=== PATIENT | male | born 1970 | race Caucasian/White ===

== ENCOUNTER → 2018-05-29 14:25 | Outpatient (CLI) | payer BC, SELFPAY ==
--- NOTE | 2018-05-29 14:29 | XR_ITS ---
XR knee LT 4V HISTORY: ITS.REASON: Lt knee pain ORDERING PHYSICIAN: Chasidy Parks MD PATIENT AGE: 47 years COMPARISON: 05/27/2018 FINDINGS: 4 views are obtained with weightbearing. [place] view also obtained. There are moderate osteoarthritic changes of the medial compartment and mild osteoarthritic change of the lateral compartment and patellofemoral joint. Prominent osteophytes are present at the intercondylar region of the distal femur and at the posterior patella. There is a lucency at the base of the superior patellar osteophyte. This could be a fracture at the base in the appropriate clinical setting. Small knee joint effusion. Otherwise negative. IMPRESSION: Moderate osteoarthritic changes greatest at the medial compartment Lucency at the base of the superior patellar osteophyte which could be due to a nondisplaced fracture in the appropriate clinical setting
== END ==
PROVIDERS: Visit Provider Orthopaedic Surgery
DX: M25.462 Effusion, left knee (principal)
CPT/HCPCS: 73564

== ENCOUNTER → 2018-07-20 13:24 | Outpatient (CLI) | payer OTHER, SELFPAY ==
--- NOTE | 2018-07-20 13:32 | XR_ITS ---
XR shoulder RT 1V COMPARISON: None HISTORY: Suspected right shoulder mass TECHNIQUE: AP view FINDINGS: There is mild soft tissue swelling over the acromion process of the scapula. There is a small focal ossification within the area of soft tissue swelling. The humeral head and glenoid appear normal. The clavicle and AC joint appear normal. IMPRESSION: Possible soft tissue mass right shoulder with small focal ossification, recommend follow-up MRI scan of the shoulder for better overall evaluation
== END ==
PROVIDERS: PCP Family Medicine; Visit Provider Surgery
DX: R22.31 Localized swelling, mass and lump, right upper limb (principal)
CPT/HCPCS: 73020

== ENCOUNTER → 2018-07-24 15:01 | Outpatient (CLI) | payer OTHER, SELFPAY ==
--- NOTE | 2018-07-24 15:03 | US_ITS ---
US extremity RT limited Ordering Physician: Dilshad Moreno MD Patient Age: 48 years: Male HISTORY: ITS.REASON: rt shoulder mass TECHNIQUE: Ultrasound right shoulder mw COMPARISON :Single view Plain films right shoulder 07/20/2018 FINDINGS Ultrasound of palpable area overlying the shoulder was performed. There is a large palpable area entire area could not be included on this scan for complete measurement . This fist size mass appears to measure at least 5 - 6 cm maximally per technologist /mw . I suspect it could be larger based the single view radiograph included today . Suspect it is a lipoma on ultrasound. There is some minimal flow here and I see no focal hypoechoic solid areas or cystic areas within it. It resides just beneath the skin surface & is overall slightly hyperechoic.-These features most compatible with lipoma.. .. IMPRESSION: . Large mass overlying the right shoulder. Most likely reflecting lipoma by ultrasound.
== END ==
PROVIDERS: PCP Family Medicine; Visit Provider Surgery
DX: R22.31 Localized swelling, mass and lump, right upper limb (principal)
CPT/HCPCS: 76882

== ENCOUNTER → 2018-08-24 15:42 | Outpatient (CLI) | payer OTHER, SELFPAY ==
[2018-08-24 16:13] LABS: Basophils % 0.5 % (0.1-2.0); Eosinophils # 0.3 K/mm3 (0.0-0.4); Hematocrit 40.4 % (42.0-52.0); Lymphocytes # 2.3 K/mm3 (0.7-4.5); Lymphocytes % 25.7 % (10-50); Mean Corpuscular HGB Conc 34.7 g/dL (31.8-35.4); Mean Corpuscular Hemoglobin 31.2 pg (27.0-31.2); Mean Platelet Volume 7.1 fl (7.4-10.4); Monocytes # 0.8 K/mm3 (0.1-1.0); Monocytes % 9.3 % (1.7-9.3); Neutrophils # 5.5 K/mm3 (1.8-7.8); Neutrophils % 61.5 % (37.0-80.0); Platelet Count 332 K/mm3 (142-424); Red Cell Distribution Width 13.6 % (11.5-17.5); White Blood Count 8.9 K/mm3 (4.8-10.8)
[2018-08-24 18:29] LABS: Anion Gap 12.6 mEq/L (5-15); Blood Urea Nitrogen 18 mg/dL (7-18); Calcium 8.9 mg/dL (8.5-10.1); Carbon Dioxide 28 mmol/L (21.0-32.0); Chloride 104 mmol/L (98-107); Creatinine,Serum 1.21 mg/dL (0.70-1.30); Estimated Glomerular Filt Rate 64 ml/min (>60); GFR (African American) 77 ML/MIN (>60); Glucose 86 mg/dL (74-106); Potassium 4.6 mmoL/L (3.5-5.1); Sodium 140 mmol/L (136-145)
== END ==
PROVIDERS: Visit Provider Surgery
DX: R22.30 Localized swelling, mass and lump, unspecified upper limb (principal)
CPT/HCPCS: 36415; 80048; 85025